=== PATIENT | male | born 1940 | race Caucasian/White ===

== ENCOUNTER 2018-03-29 08:50 | Day surgery (SDC) | payer OTHER, BC ==
[2018-03-29] MEDS ORDERED: Ringers Lactate 1,000 ML IV ONE (09:42)
[2018-03-29] MEDS ORDERED: LIDOCAINE 2% MPF 5 ML VIAL ONE (11:12)
[2018-03-29] MEDS ORDERED: PROPOFOL 200 MG/20 ML VIAL IV ONE (11:22)
--- NOTE | 2018-03-29 13:15 | ENDO RPT ---
[address], [address] COLONOSCOPY PROCEDURE REPORT EXAM DATE: 03/29/2018 PATIENT NAME: Yassine Puri MR #: [id number] BIRTHDATE: 1940 ATTENDING: Yassine Seo Dr STATUS: outpatient STRATEGY PLANNING CONSULTANT: Alondra Barajas RN and Jemma Taylor RN INDICATIONS: The patient is a 77 yr old Male here for a colonoscopy due to colon cancer screening PROCEDURE PERFORMED: Colonoscopy MEDICATIONS: Per Anesthesia. ESTIMATED BLOOD LOSS: None CONSENT: The patient understands the risks and benefits of the procedure and understands that these risks include, but are not limited to: sedation, allergic reaction, infection, perforation and/or bleeding. Alternative means of evaluation and treatment include, among others: physical exam, x-rays, and/or surgical intervention. The patient elects to proceed with this endoscopic procedure. DESCRIPTION OF PROCEDURE: During intra-op preparation period all mechanical medical equipment was checked for proper function. Hand hygiene and appropriate measures for infection prevention was taken. Procedure, possible complications, alternatives including, but not limited to possibility of bleeding, perforation, tear, infection, sepsis, need for surgery, need for blood transfusion, were explained to the patient. After the risks, benefits and alternatives of the procedure were thoroughly explained, Informed consent was verified, confirmed and timeout was successfully executed by the treatment team. The patient was placed in the left lateral position. A digital rectal exam was performed and revealed external hemorrhoids and A digital rectal exam was performed and revealed several skin tags. After appropriate level of anesthesia, the scope was passed. The [id number] ([id number]) endoscope was introduced through the anus and advanced to the cecum, which was identified by both the appendix and ileocecal valve. The quality of the prep was fair. The instrument was then slowly withdrawn as the colon was fully examined. Scope withdrawal time was 7 minutes. COLON FINDINGS: Mild diverticulosis was noted throughout the entire examined colon, predominantly in the sigmoid colon. No bleeding was noted from the diverticulosis. Moderate sized internal and external hemorrhoids were found. Retroflexed views revealed medium hemorrhoids. The scope was then completely withdrawn from the patient and the procedure terminated. ADVERSE EVENTS: There were no complications. IMPRESSIONS: 1. Mild diverticulosis throughout the entire examined colon, predominantly in the sigmoid colon 2. Moderate sized internal and external hemorrhoids 3. Intubation to cecum RECOMMENDATIONS: fiber rich diet RECALL: None scheduled due to age (77 y.o.) Yassine Seo Dr eSigned: Yassine Seo Dr 03/29/2018 11:45 AM cc: Braulio Paul CPT CODES: ICD9 CODES: PATIENT NAME: Yassine Puri MR#: [id number]
[2018-03-29 15:22] VITALS: BP 143/81; TEMP 97.6; O2SAT 100
== END 2018-03-29 12:06 | disposition home or self-care (01) ==
LOC: OR 08:50
PROVIDERS: ATTEND Internal Medicine Gastroenterology
PROC: 0DJD8ZZ Inspection of Lower Intestinal Tract, Via Natural or Artificial Opening Endoscopic (ICD-10-PCS; principal; 2018-03-29 12:15)
DX: Z12.11 Encounter for screening for malignant neoplasm of colon (principal); K57.90 Diverticulosis of intestine, part unspecified, without perforation or abscess without bleeding; K64.8 Other hemorrhoids; K64.4 Residual hemorrhoidal skin tags; E11.9 Type 2 diabetes mellitus without complications; I11.0 Hypertensive heart disease with heart failure; I50.9 Heart failure, unspecified; I25.2 Old myocardial infarction; Z95.0 Presence of cardiac pacemaker

== ENCOUNTER 2021-01-04 21:03 | Emergency (ER) | payer OTHER, BC ==
--- OUTSIDE RECORDS SUMMARY | 2021-01-04 21:05 | XMS REPORT | Continuity of Care Document ---
:1940 Author Organization [facility] t Address [address] [place] [address] Care Team Providers Name Role Phone Unavailable Unavailable Unavailable Payers Payer Name Policy Type Policy Number Effective Date Expiration Date S ource Problems This patient has no known problems. Allergies, Adverse Reactions, Alerts Allergy Allergy Status Severity Reaction(s) Onset Inactive Treating Comm ents Source Name Type Date Date Clinician No Known DA Active U [facility] All[facility]ie 12-[address] 00:00: [address] Medications This patient has no known medications. Procedures This patient has no known procedures. Results Test Description Test Time Test Comments Results Result Comments Source BASIC METABOLIC PANEL 2020-04-23 06:57:00 Test Item Value Reference Range Interpretation Comme nts SODIUM (test code = NA) 138 MMOL/L 137-145 N POTASSIUM (test code = K) 4.0 MMOL/L 3.5-5.1 N CHLORIDE (test code = CL) 102 MMOL/L 98-107 N CARBON DIOXIDE (test code = CO2) 26 MMOL/L 22-30 N GLUCOSE (test code = GLU) 118 MG/DL 74-106 H BLOOD UREA NITROGEN (test code = 13 MG/DL 9-20 N BUN) GLOMERULAR FILTRATION RATE (test > 60 Reporting units: ml/min/1.73 code = GFR) m2 (Modified M DRD Formula)Referen ce Range: > or = 60 ml/min/1.7 3 m2 CREATININE (test code = CREAT) 1.10 MG/DL 0.66-1.25 N CALCIUM (test code = CA) 9.5 MG/DL 8.4-10.2 N [id number] 06:57:00 Test Item Value Reference Range Interpretation Comments MAGNESIUM (test code = MAG) 2.1 MG/DL 1.6-2.3 N BASIC METABOLIC [id number] 06:56:00 Test Item Value Reference Range Interpretation Comments SODIUM (test code = 138 MMOL/L 137-145 N NA) POTASSIUM (test code = 4.0 MMOL/L 3.5-5.1 N K) CHLORIDE (test code = 102 MMOL/L 98-107 N CL) CARBON DIOXIDE (test 26 MMOL/L 22-30 N code = CO2) GLUCOSE (test code = MG/DL 74-106 GLU) BLOOD UREA NITROGEN MG/DL 9-20 (test code = BUN) GLOMERULAR FILTRATION > 60 Report ing units: RATE (test code = GFR) ml/mi n/1.73 m2 (Modified MDRD Formula)Referen ce Range: > or = 6 0 ml/min/1.73 m2 CREATININE (test code 1.10 MG/DL 0.66-1.25 N = CREAT) CALCIUM (test code = MG/DL 8.7-9.7 CA) [id number] 06:56:00 Test Item Value Reference Range Interpretation Comments MAGNESIUM (test code = MAG) MG/DL 1.6-2.3 BASIC METABOLIC [id number] 06:53:00 Test Item Value Reference Range Interpretation Comments SODIUM (test code = NA) 138 MMOL/L 137-145 N POTASSIUM (test code = K) MMOL/L 3.5-5.1 CHLORIDE (test code = CL) 102 MMOL/L 98-107 N CARBON DIOXIDE (test code = CO2) MMOL/L 22-30 GLUCOSE (test code = GLU) MG/DL 74-106 BLOOD UREA NITROGEN (test code = MG/DL 9-20 BUN) GLOMERULAR FILTRATION RATE (test code = GFR) CREATININE (test code = CREAT) MG/DL 0.66-1.25 CALCIUM (test code = CA) MG/DL 8.7-9.7 [id number] 06:53:00 Test Item Value Reference Range Interpretation Comments MAGNESIUM (test code = MAG) MG/DL 1.6-2.3 PROTHROMBIN [id number] 06:52:00 Test Item Value Reference Range Interpretation Comments PROTHROMBIN TIME 16.4 SECONDS 9.4-12.5 H PATIENT (test code = PTP) INTERNATIONAL NORMAL 1.5 The INR is to be RATIO (test code = used only for INR) monitoring oral anticoagulantth erap y. INDICATION I NR VALUE ---- ---- ---- -------1. Prophylaxis, de ep venous thrombos is, including hig h risk surgery. 2.0 - 3.0 2. Prophylaxis, de ep venous thrombos is, hip surgery, treatment for d eep venous thrombosis or pulmonary prevention of systemic emboli sm in patients wit h valvular heart disease, atrial fibrillation, tissue heart va lve, or acute myocar dial infarction. 2.0 - 3 .0 3. Mechanical prosthesis hear t valves, recurrent syste shane embolism. 3.0 - 4.5 Comments to Fastener Sewing Machine Operator: WILL BRING SPECIMAN TO THE LABPTT [id number] 06:52:00 Test Item Value Reference Range Interpretation Comments PTT ACTIVATED (test code = APTT) 35.3 SECONDS 25.1-36.5 N Comments to Fastener Sewing Machine Operator: WILL BRING SPECIMAN TO THE LABCBC W/AUTO DIFF 2020-04-23 06:42:00 Test Item Value Reference Range Interpretation Comments WHITE BLOOD CELL (test code = 6.7 K/MM3 3.8-9.8 N WBC) RED BLOOD CELL (test code = 4.79 M/MM3 3.95-5.67 N RBC) HEMOGLOBIN (test code = HGB) 14.1 G/DL 12.4-16.7 N HEMATOCRIT (test code = HCT) 44.0 % 35.9-49.5 N MEAN CELL VOLUME (test code = 92 fL 81.7-96.1 N MCV) MEAN CELL HGB (test code = MCH) 29.4 pg 27.6-33.2 N MEAN CELL HGB CONCETRATION 32.0 % 32.9-35.5 L (test code = MCHC) RED CELL DISTRIBUTION WIDTH 13.5 % 12.1-15.2 N (test code = RDW) PLATELET COUNT (test code = 165 K/MM3 129-368 N PLT) MEAN PLATELET VOLUME (test code 9.3 fl 7.4-10.4 N = MPV) NEUTROPHIL % (test code = NT%) 59.4 % 43-75 N IMMATURE GRANULOCYTE % (test 0.3 % 0.0-2.0 N code = IG%) LYMPHOCYTE % (test code = LY%) 25.5 % 14-44 N MONOCYTE % (test code = MO%) 10.4 % 4-13 N EOSINOPHIL % (test code = EO%) 3.2 % 0-6 N BASOPHIL % (test code = BA%) 1.2 % 0-2 N NUCLEATED RBC % (test code = 0.0 % 0-1.0 N NRBC%) NEUTROPHIL # (test code = NT#) 3.96 K/mm3 2.0-7.6 N IMMATURE GRANULOCYTE # (test 0.02 x10 3/uL 0-0.03 N code = IG#) LYMPHOCYTE # (test code = LY#) 1.70 K/mm3 1.0-3.8 N MONOCYTE # (test code = MO#) 0.69 K/mm3 0.1-0.8 N EOSINOPHIL # (test code = EO#) 0.21 K/mm3 0.0-0.2 H BASOPHIL # (test code = BA#) 0.08 K/mm3 0.0-0.2 N NUCLEATED RBC # (test code = 0.00 K/mm3 0.0-0.1 N NRBC#) Novel Coronavirus 2019 [id number] 18:25:00 Test Item Value Reference Range Interpretation Comments Novel Coronavirus Not Detected Not Detected Testing wa s performed 2019 Inhouse (test using the Aptima code = COVNONPUI) SARS-CoV-2 assay.This nucleic acid amplification t est was developed and itsperformance characteristics determined by [facility]. Nucleic acid amplification t ests include PCRand TMA. This test has not be en FDA cleared or appr brianna.This test has been a uthorized by FDA under an Emergency UseAuthorizatio n (EUA). This test is on ly authorized fort he duration of federico e the declaration marsha t circumstancesex ist justifying the authorization o f the emergency use o fin vitro diagnostic test s for detection of SA RS-CoV-2 virusand/or jennifer gnosis of COVID-19 infect ion under zisxaqc729(b)(1 ) of the Act, 21 U.S.C. 360bbb-3(b) (1) , unless theauthorizatio n is terminated or r evoked sooner.When jennifer gnostic testing is nega tive, the possibility of afalse negative result should be considered i n the contextof a pat ient's recent exposure s and the presence ofclin ical signs and sympt oms consistent with COVID-19. Anind ividual without symptom s of COVID-19 and wh o is notshedding NISH S-CoV-2 virus would exp ect to have a negative (not detected) resul t in this assay.Performed At: [facility] [address] [id number] baron Mixon MD Ph:[phone] Is this a LINE draw? N- XR CHEST 2 [id number] 10:49:00 Patient Name: RACHEAL HERRING Unit No: [id number] EXAMS: CPT CODE: [id number] XR CHEST 2 V [id number] EXAM: - XR CHEST 2 V LOCATION: C3 HISTORY: CHF COMPARISON: 01/13/2011 FINDINGS: 2 views of the chest. ICD noted. No pneumothorax. The lungs are clear. No pleural effusions are present. The mediastinal contours are unremarkable. No acute osseous findings are present. Unchanged compression deformity of T12. IMPRESSION: No acute cardiopulmonary abnormality. at 1049 Reported and signed by: Marshall Reynolds MD CC: Nehemias Phoenix Technologist: Viri Crooks, RT(NM) Transcrpt Date/Tm/Trnsp: 08/15/2018 (1040) [email or web address] Orig Print D/T: S: 08/15/2018 (1172) [facility] NAME: RACHEAL HERRING [address] [facility] [address] PHYS: Nehemias Domí[place] [address] : 1940 AGE: 78 SEX: M LOC: [facility] PHONE #: [phone] EXAM DATE: 08/15/2018 STATUS: REG CLI FAX #: [phone] RADIOLOGY NO: PAGE 1 Signed Report
[2021-01-04 22:00] LABS: Absolute Lymphocytes (CBC) 1.7 K/uL (0.7-4.9); Hematocrit 36.5 % (39.6-49.0); Lymphocytes % 23.6 % (15.3-44.8); MPV 7.6 fL (7.6-11.3); RBC Red Blood Cell Count 4.21 M/uL (4.33-5.43)
[2021-01-04 22:08] LABS: Protime INR 1.34
[2021-01-04 22:22] LABS: ALT/SGPT 24 U/L (12-78); AST/SGOT 16 U/L (15-37); Albumin 3.5 g/dL (3.4-5.0); Alkaline Phosphatase 57 U/L (45-117); BUN Blood Urea Nitrogen 14 mg/dL (7-18); Bicarbonate 28 mmol/L (21-32); Bilirubin Direct 0.2 mg/dL (0-0.2); Bilirubin Total 0.9 mg/dL (0.2-1.0); Glucose Level 119 mg/dL (74-106); Magnesium 2.3 mg/dL (1.8-2.4); NT PRO-BNP 985 pg/mL (<450); Potassium 4.3 mmol/L (3.5-5.1); Protein, Total 6.8 g/dL (6.4-8.2); Sodium Level 139 mmol/L (136-145); Troponin (Emerg Dept Use Only) < 0.02 ng/mL (0.0-0.045)
--- NOTE | 2021-01-04 22:23 | RAD REPORT ---
EXAM DESCRIPTION: Lise Single View01/04/2021 10:08 pm CLINICAL HISTORY: Chest pain COMPARISON: 2016 FINDINGS: The lungs appear clear of acute infiltrate. The heart is mildly to moderately enlarged. P acemaker leads are in place. Postsurgical changes involve chest IMPRESSION: No acute abnormalities displayed
--- NOTE | 2021-01-04 22:43 | ER ---
Nurse's Notes [facility] Name: Yassine Puri Age: 80 yrs Sex: Male : 1940 Arrival Date: 01/04/2021 Time: 21:03 Bed 5 Private MD: Braulio Paul Diagnosis: Palpitations;Presence of cardiac pacemaker;Presence of automatic (implantable) cardiac defibrillator Presentation: 01/04 21:12 Chief complaint: Patient states: Feeling fluttering, feels like his defibrillator is lp1 "going off" that began this evening; Denies chest pain, shortness of breath. Coronavirus screen: Client denies travel out of the [place] in the last 14 days. At this time, the client does not indicate any symptoms associated with coronavirus-19. Ebola Screen: No symptoms or risks identified at this time. Initial Sepsis Screen: Does the patient meet any 2 criteria? No. Patient's initial sepsis screen is negative. Does the patient have a suspected source of infection? No. Patient's initial sepsis screen is negative. Risk Assessment: Do you want to hurt yourself or someone else? Patient reports no desire to harm self or others. Onset of symptoms was January 04, 2021. 21:12 Method Of Arrival: Wheelchair lp1 21:12 Acuity: MESHA 3 lp1 Historical: - Allergies: 21:13 No Known Allergies; lp1 - PMHx: 21:13 defibrilator; Hypertension; lp1 - Immunization history:: Adult Immunizations up to date. - Social history:: Smoking status: Patient denies any tobacco usage or history of. Screenin:45 Abuse screen: Denies threats or abuse. Nutritional screening: No deficits noted. bb Tuberculosis screening: No symptoms or risk factors identified. Fall Risk None identified. Assessment: 21:45 General: Appears in no apparent distress. slender, Behavior is calm, cooperative. Pain: bb Denies pain. Neuro: Level of Consciousness is awake, alert, obeys commands, Oriented to person, place, time, situation. Cardiovascular: Capillary refill < 3 seconds Patient's skin is warm and dry. Rhythm is Respiratory: Respiratory effort is even, unlabored, Respiratory pattern is regular. GI: No signs and/or symptoms were reported involving the gastrointestinal system. Derm: Skin is dry, Skin is pale, Skin temperature is warm. Musculoskeletal: Circulation, motion, and sensation intact. 23:11 Reassessment: Patient appears in no apparent distress at this time. Patient and/or zb family updated on plan of care and expected duration. Pain level reassessed. Patient is alert, oriented x 3, equal unlabored respirations, skin warm/dry/pink. patient decided to AMA. notified of risk. paperwork signed. Vital Signs: 21:12 BP 125 / 62; Pulse 63; Resp 18; Pulse Ox 99% on R/A; Weight 68.04 kg (R); Height 5 ft. lp1 8 in. (172.72 cm); Pain 0/10; 21:45 BP 125 / 68; Pulse 61; Resp 16 S; Pulse Ox 95% on R/A; Pain 0/10; bb 23:13 BP 133 / 75; Pulse 62; Resp 16; Pulse Ox 97% on R/A; zb 21:12 Body Mass Index 22.81 (68.04 kg, 172.72 cm) lp1 ED Course: 21:03 Patient arrived in ED. do 21:03 Braulio Paul MD is Private Physician. do 21:13 Triage completed. lp1 21:13 Arm band placed on. lp1 21:30 Porter Hernandez MD is Attending Physician. 7 21:30 Initial lab(s) drawn, by me, sent to lab. Inserted saline lock: 20 gauge in right bb antecubital area, using aseptic technique. Blood collected. 21:44 Ciera Stewart, DOUG is Primary Nurse. bb 21:45 Patient has correct armband on for positive identification. Placed in gown. Bed in low bb position. Call light in reach. Side rails up X2. Adult w/ patient. electronic device monitor on. Pulse ox on. NIBP on. Warm blanket given. 22:08 XRAY Chest (1 view) In Process Unspecified. EDMS 22:42 Sumit Leggett MD is Referral Physician. 7 23:12 No provider procedures requiring assistance completed. IV discontinued, intact, zb bleeding controlled, No redness/swelling at site. Pressure dressing applied. Administered Medications: No medications were administered Outcome: 23:13 AMA AMA form signed zb 23:13 Condition: stable 23:13 Instructed on follow up and referral plans. 23:15 Patient left the ED. zb Signatures: Dispatcher [employer] Ciera Tiwari RN RN bb Erma Young RN RN 1 Swati Chua Maurice, MD MD 7 Dana Campos RN RN zb
--- NOTE | 2021-01-04 22:43 | EDPHYS ---
Physician Documentation [facility] Name: Yassine Puri Age: 80 yrs Sex: Male : 1940 Arrival Date: 01/04/2021 Time: 21:03 Bed 5 Private MD: Braulio Paul ED Physician Porter Hernandez HPI: 01/04 21:50 This 80 yrs old Male presents to ER via Wheelchair with complaints of Heart mh7 Problems. 21:50 The patient presents with a history of irregular heart beat, heart skipping beats. mh7 Context: The symptoms occur at rest. Onset: The symptoms/episode began/occurred yesterday. Duration: The patient or guardian reports multiple episodes, that are intermittent, that wax and wane. Modifying factors: The symptoms are aggravated by nothing. The symptoms are alleviated by nothing. Associated signs and symptoms: Pertinent negatives: anxiety, chest pain, cough, fever, lightheadedness, nausea, SOB, syncope, near-syncope, unusual stressors, vertigo, vomiting. Severity of symptoms: At their worst the symptoms were moderate today, in the emergency department the symptoms have resolved and did so just prior to arrival. Historical: - Allergies: 21:13 No Known Allergies; lp1 - PMHx: 21:13 defibrilator; Hypertension; lp1 - Immunization history:: Adult Immunizations up to date. - Social history:: Smoking status: Patient denies any tobacco usage or history of. ROS: 21:50 Constitutional: Negative for fever, chills, and weight loss, Eyes: Negative for injury, mh7 pain, redness, and discharge, ENT: Negative for injury, pain, and discharge, Neck: Negative for injury, pain, and swelling, Respiratory: Negative for shortness of breath, cough, wheezing, and pleuritic chest pain, Abdomen/GI: Negative for abdominal pain, nausea, vomiting, diarrhea, and constipation, Back: Negative for injury and pain, : Negative for injury, bleeding, discharge, and swelling, MS/Extremity: Negative for injury and deformity, Skin: Negative for injury, rash, and discoloration, Neuro: Negative for headache, weakness, numbness, tingling, and seizure, Psych: Negative for depression, anxiety, suicide ideation, homicidal ideation, and hallucinations, Allergy/Immunology: Negative for hives, rash, and allergies, Endocrine: Negative for neck swelling, polydipsia, polyuria, polyphagia, and marked weight changes, Hematologic/Lymphatic: Negative for swollen nodes, abnormal bleeding, and unusual bruising. Exam: 21:50 Constitutional: This is a well developed, well nourished patient who is awake, alert, mh7 and in no acute distress. Head/Face: Normocephalic, atraumatic. Eyes: Pupils equal round and reactive to light, extra-ocular motions intact. Lids and lashes normal. Conjunctiva and sclera are non-icteric and not injected. Cornea within normal limits. Periorbital areas with no swelling, redness, or edema. Neck: Trachea midline, no thyromegaly or masses palpated, and no cervical lymphadenopathy. Supple, full range of motion without nuchal rigidity, or vertebral point tenderness. No Meningismus. Chest/axilla: Normal chest wall appearance and motion. Nontender with no deformity. No lesions are appreciated. Cardiovascular: Regular rate and rhythm with a normal S1 and S2. No gallops, murmurs, or rubs. Normal PMI, no JVD. No pulse deficits. Respiratory: Lungs have equal breath sounds bilaterally, clear to auscultation and percussion. No rales, rhonchi or wheezes noted. No increased work of breathing, no retractions or nasal flaring. Abdomen/GI: Soft, non-tender, with normal bowel sounds. No distension or tympany. No guarding or rebound. No evidence of tenderness throughout. Back: No spinal tenderness. No costovertebral tenderness. Full range of motion. Skin: Warm, dry with normal turgor. Normal color with no rashes, no lesions, and no evidence of cellulitis. MS/ Extremity: Pulses equal, no cyanosis. Neurovascular intact. Full, normal range of motion. Neuro: Awake and alert, GCS 15, oriented to person, place, time, and situation. Cranial nerves II-XII grossly intact. Motor strength 5/5 in all extremities. Sensory grossly intact. Cerebellar exam normal. Normal gait. Psych: Awake, alert, with orientation to person, place and time. Behavior, mood, and affect are within normal limits. Vital Signs: 21:12 BP 125 / 62; Pulse 63; Resp 18; Pulse Ox 99% on R/A; Weight 68.04 kg (R); Height 5 ft. lp1 8 in. (172.72 cm); Pain 0/10; 21:45 BP 125 / 68; Pulse 61; Resp 16 S; Pulse Ox 95% on R/A; Pain 0/10; bb 23:13 BP 133 / 75; Pulse 62; Resp 16; Pulse Ox 97% on R/A; zb 21:12 Body Mass Index 22.81 (68.04 kg, 172.72 cm) lp1 MDM: 22:41 Differential diagnosis: arrythmia, dehydration, stress disorder, Palpitations, mh7 pacemaker/defibrillator malfunction. Data reviewed: vital signs, nurses notes. Data interpreted: Pulse oximetry: on room air is 95 %. Interpretation: normal. Response to treatment: the patient's symptoms have resolved after treatment, the patient's blood pressure is in an acceptable range, mental status has returned to baseline, the patient no longer shows bradycardia, the patient is not short of breath, the patient is not tachycardic, the patient's pain is gone, the patient's temperature has normalized. Refusal of service: The patient/guardian displays adequate decision making capability and despite a detailed discussion of alternatives, benefits, risks, and consequences refuses: all lab tests, Interrogation of pacemaker/defibrillator. 22:43 Patient medically screened. 7 01/04 21:44 Order name: Basic Metabolic Panel 01/04 21:44 Order name: CBC with Diff bb 01/04 21:44 Order name: LFT's; Complete Time: 22:36 01/04 21:44 Order name: Magnesium; Complete Time: 22:36 01/04 21:44 Order name: NT PRO-BNP; Complete Time: 22:36 01/04 21:44 Order name: PT-INR; Complete Time: 22:36 01/04 21:44 Order name: Troponin (emerg Dept Use Only); Complete Time: 22:36 bb 01/04 21:44 Order name: XRAY Chest (1 view); Complete Time: 22:36 bb 01/04 21:44 Order name: EKG; Complete Time: 21:45 bb 01/04 21:44 Order name: Cardiac monitoring; Complete Time: 21:44 bb 01/04 21:45 Order name: Basic Metabolic Panel; Complete Time: 22:36 EDMS 01/04 21:45 Order name: CBC with Automated Diff; Complete Time: 22:06 EDMS 01/04 22:41 Order name: TSH mh7 01/04 21:44 Order name: EKG - Nurse/Tech; Complete Time: :44 bb 01/04 21:44 Order name: IV Saline Lock; Complete Time: 21:44 bb 01/04 21:44 Order name: Labs collected and sent; Complete Time: :44 bb 01/04 21:44 Order name: O2 Per Protocol; Complete Time: :44 bb 01/04 21:44 Order name: O2 Sat Monitoring; Complete Time: 21:44 bb Administered Medications: No medications were administered Disposition Summary: 01/04/21 22:43 Left Against Medical Advice Location: [facility] Problem: new [facility] Symptoms: have improved [facility] Condition: Stable [facility] Diagnosis - Palpitations [facility] - Presence of cardiac pacemaker [facility] - Presence of automatic (implantable) cardiac defibrillator [facility] Followup: [facility] - With: Private Physician - When: 1 - 2 days - Reason: Worsening of condition, Recheck today's complaints, Continuance of care, Re-evaluation by your physician Followup: [facility] - With: Sumit Leggett MD - When: 1 - 2 days - Reason: Worsening of condition, Recheck today's complaints Discharge Instructions: - Discharge Summary Sheet [facility] - Palpitations [facility] Signatures: Dispatcher [employer] Ciera Tiwari RN RN bb Erma Young RN RN lp1 Porter Hernandez MD MD [facility]
[2021-01-04 23:25] VITALS: BP 133/75; O2SAT 97
== END 2021-01-04 23:15 | disposition left against medical advice (07) ==
LOC: ER 21:03
DX: R00.2 Palpitations (principal); I10 Essential (primary) hypertension; Z95.810 Presence of automatic (implantable) cardiac defibrillator
CPT/HCPCS: 36415; 71045; 80048; 80076; 83735; 83880; 84484; 85025; 85610; 93005; 99284

== ENCOUNTER → 2023-07-05 | Emergency (ER) | payer OTHER, BC ==
[~2023-07-05] MED LIST: MORPHINE 4 MG/ML SYR ONE
--- OUTSIDE RECORDS SUMMARY | 2023-07-05 13:26 | XMS REPORT | Continuity of Care Document ---
Author Name Unknown Address [address] [facility] [address]. [address] [place] [address] [facility] thconnect Address [address] [facility]. [address] [place] [address] Care Team Providers Care Lead Inspector Name Role Phone WILLIAM DAS Primary Care Physician LUIS Li Attending Clinician Nehemias Lora Attending Clinician ARABELLA Rodrigues Attending Clinician Nehemias Lora Admitting Clinician Carrillo dickson Payers Payer Name Policy Type Policy Number Effective Date Expirati on Date Source [facility] [id number] 2006 00:00:00 MEDICARE PART A \T\ B [id number] 2004 00:00:00 Allergies, Adverse Reactions, Alerts Allergy Name Allergy Type Status Severity Reaction(s) Onset Date Inactive Date Treating Clinician Comments Source No Known Allergie s DA Active U 12-26 00:00: 00 [facility] No Known Allergie s DA Active U 12-26 00:00: 00 [facility] NO KNOWN ALLERGIE S Drug Class Active [facility] Encounters Start Date/Time End Date/Time Encounter Type Admission Type Attending Clinicians Care Facility Care Department Encounter ID Source 2022-01-06 12:08:00 2022-01-06 12:08:00 Outpatient Nehemisa Juarez [facility] [id number] [facility] 2022-01-06 12:08:00 2022-01-06 12:08:00 Outpatient Nehemias Juarez [facility] [id number] [facility] 2020-08-13 10:20:00 2020-08-13 10:20:00 Outpatient [facility]ELLA [facility] [id number] [facility] 2020-08-13 10:20:00 2020-08-13 10:20:00 Outpatient ARABELLA [facility] [id number] [facility] 2020-07-16 10:20:00 2020-07-16 10:20:00 Outpatient ARABELLA [facility] [id number] [facility] 2020-04-23 07:30:00 2020-04-23 07:30:00 Outpatient Nehemias Phoenix [facility] [id number] [facility] Results Test Description Test Time Test Comments Results Result Co mments Source [id number] 13:52:00* Test Item Value Reference Range Interpretation Comme nts MAGNESIUM (test code = MAG) 1.9 MG/DL 1.6-2.3 N PROTHROMBIN [id number] 13:48:00* Test Item Value Reference Range Interpretation Comme nts PROTHROMBIN TIME PATIENT (test code = PTP) 15.4 SECONDS 9.4-12.7 H INTERNATIONAL NORMAL RATIO (test code = INR) 1.4 0.86-1.14 H The INR is to be used only for monitoring oral anticoagulanttherap y. INDICATION INR VALUE -------1. Prophylaxis, deep venous thrombosis, including high risk surgery. 2.0 - 3.0 2. Prophylaxis, deep venous thrombosis, hip surgery, treatment for deep venous thrombosis or pulmonary prevention of systemic embolism in patients with valvular heart disease, atrial fibrillation, tissue heart valve, or acute myocardial infarction. 2.0 - 3.0 3. Mechanical prosthesis heart valves, recurrent systemic embolism. 3.0 - 4.5 PTT [id number] 13:48:00* Test Item Value Reference Range Interpretation Comme nts PTT ACTIVATED (test code = APTT) 35.8 SECONDS 26.2-35.4 H CBC W/AUTO [id number] 13:21:00* Test Item Value Reference Range Interpretation Comme nts WHITE BLOOD CELL (test code = WBC) 6.0 K/MM3 3.8-9.8 N RED BLOOD CELL (test code = RBC) 4.63 M/MM3 3.95-5.67 N HEMOGLOBIN (test code = HGB) 13.9 G/DL 12.4-16.7 N HEMATOCRIT (test code = HCT) 42.3 % 35.9-49.5 N MEAN CELL VOLUME (test code = MCV) 91 fL 81.7-96.1 N MEAN CELL HGB (test code = MCH) 30.0 pg 27.6-33.2 N MEAN CELL HGB CONCETRATION (test code = MCHC) 32.9 % 32.9-35.5 N RED CELL DISTRIBUTION WIDTH (test code = RDW) 13.9 % 12.1-15.2 N PLATELET COUNT (test code = PLT) 178 K/MM3 129-368 N MEAN PLATELET VOLUME (test c ode = MPV) 9.6 fl 7.4-10.4 N NEUTROPHIL % (test code = NT%) 68.9 % 43-75 N IMMATURE GRANULOCYTE % (test code = IG%) 0.5 % 0.0-2.0 N LYMPHOCYTE % (test code = LY%) 18.9 % 14-44 N MONOCYTE % (test code = MO%) 10.5 % 4-13 N EOSINOPHIL % (test code = EO%) 0.7 % 0-6 N BASOPHIL % (test code = BA%) 0.5 % 0-2 N NUCLEATED RBC % (test code = NRBC%) 0.0 % 0-1.0 N NEUTROPHIL # (test code = NT#) 4.15 K/mm3 2.0-7.6 N IMMATURE GRANULOCYTE # (test code = IG#) 0.03 x10 3/uL 0-0.03 N LYMPHOCYTE # (test code = LY#) 1.14 K/mm3 1.0-3.8 N MONOCYTE # (test code = MO#) 0.63 K/mm3 0.1-0.8 N EOSINOPHIL # (test code = EO#) 0.04 K/mm3 0.0-0.2 N BASOPHIL # (test code = BA#) 0.03 K/mm3 0.0-0.2 N NUCLEATED RBC # (test code = NRBC#) 0.00 K/mm3 0.0-0.1 N BASIC METABOLIC [id number] 06:57:00* Test Item Value Reference Range Interpretation Comme nts SODIUM (test code = NA) 138 MMOL/L 137-145 N POTASSIUM (test code = K) 4.0 MMOL/L 3.5-5.1 N CHLORIDE (test code = CL) 102 MMOL/L 98-107 N CARBON DIOXIDE (test code = CO2) 26 MMOL/L 22-30 N GLUCOSE (test code = GLU) 118 MG/DL 74-106 H BLOOD UREA NITROGEN (test code = BUN) 13 MG/DL 9-20 N GLOMERULAR FILTRATION RATE (test code = GFR) > 60 Reporting units: ml/min/1.73 m2 (Modified MDRD Formula)Reference Range: > or = 60 ml/min/1.73 m2 CREATININE (test code = CREAT) 1.10 MG/DL 0.66-1.25 N CALCIUM (test code = CA) 9.5 MG/DL 8.4-10.2 N [id number] 06:57:00* Test Item Value Reference Range Interpretation Comme nts MAGNESIUM (test code = MAG) 2.1 MG/DL 1.6-2.3 N [id number] 06:56:00* Test Item Value Reference Range Interpretation Comme nts MAGNESIUM (test code = MAG) MG/DL 1.6-2.3 BASIC METABOLIC [id number] 06:56:00* Test Item Value Reference Range Interpretation Comme nts SODIUM (test code = NA) 138 MMOL/L 137-145 N POTASSIUM (test code = K) 4.0 MMOL/L 3.5-5.1 N CHLORIDE (test code = CL) 102 MMOL/L 98-107 N CARBON DIOXIDE (test code = CO2) 26 MMOL/L 22-30 N GLUCOSE (test code = GLU) MG/DL 74-106 BLOOD UREA NITROGEN (test code = BUN) MG/DL 9-20 GLOMERULAR FILTRATION RATE (test code = GFR) > 60 Reporting units: ml/min/1.73 m2 (Modified MDRD Formula)Reference Range: > or = 60 ml/min/1.73 m2 CREATININE (test code = CREAT) 1.10 MG/DL 0.66-1.25 N CALCIUM (test code = CA) MG/DL 8.7-9.7 BASIC METABOLIC [id number] 06:53:00* Test Item Value Reference Range Interpretation Comme nts SODIUM (test code = NA) 138 MMOL/L 137-145 N POTASSIUM (test code = K) MMOL/L 3.5-5.1 CHLORIDE (test code = CL) 102 MMOL/L 98-107 N CARBON DIOXIDE (test code = CO2) MMOL/L 22-30 GLUCOSE (test code = GLU) MG/DL 74-106 BLOOD UREA NITROGEN (test co de = BUN) MG/DL 9-20 GLOMERULAR FILTRATION RATE ( test code = GFR) CREATININE (test code = CREAT) MG/DL 0.66-1.25 CALCIUM (test code = CA) MG/DL 8.7-9.7 [id number] 06:53:00* Test Item Value Reference Range Interpretation Comme nts MAGNESIUM (test code = MAG) MG/DL 1.6-2.3 PROTHROMBIN [id number] 06:52:00* Test Item Value Reference Range Interpretation Comme nts PROTHROMBIN TIME PATIENT (test code = PTP) 16.4 SECONDS 9.4-12.5 H INTERNATIONAL NORMAL RATIO (test code = INR) 1.5 The INR is to be used only for monitoring oral anticoagulanttherap y. INDICATION INR VALUE -------1. Prophylaxis, deep venous thrombosis, including high risk surgery. 2.0 - 3.0 2. Prophylaxis, deep venous thrombosis, hip surgery, treatment for deep venous thrombosis or pulmonary prevention of systemic embolism in patients with valvular heart disease, atrial fibrillation, tissue heart valve, or acute myocardial infarction. 2.0 - 3.0 3. Mechanical prosthesis heart valves, recurrent systemic embolism. 3.0 - 4.5 Comments to Lead Shop Operator: WILL BRING SPECIMAN TO THE LABPTT [id number] 06:52:00* Test Item Value Reference Range Interpretation Comme nts PTT ACTIVATED (test code = APTT) 35.3 SECONDS 25.1-36.5 N Comments to Lead Shop Operator: WILL BRING SPECIMAN TO THE LABCB W/AUTO DIFF 2020-04-23 06:42:00* Test Item Value Reference Range Interpretation Comme nts WHITE BLOOD CELL (test code = WBC) 6.7 K/MM3 3.8-9.8 N RED BLOOD CELL (test code = RBC) 4.79 M/MM3 3.95-5.67 N HEMOGLOBIN (test code = HGB) 14.1 G/DL 12.4-16.7 N HEMATOCRIT (test code = HCT) 44.0 % 35.9-49.5 N MEAN CELL VOLUME (test code = MCV) 92 fL 81.7-96.1 N MEAN CELL HGB (test code = MCH) 29.4 pg 27.6-33.2 N MEAN CELL HGB CONCETRATION (test code = MCHC) 32.0 % 32.9-35.5 L RED CELL DISTRIBUTION WIDTH (test code = RDW) 13.5 % 12.1-15.2 N PLATELET COUNT (test code = PLT) 165 K/MM3 129-368 N MEAN PLATELET VOLUME (test c ode = MPV) 9.3 fl 7.4-10.4 N NEUTROPHIL % (test code = NT%) 59.4 % 43-75 N IMMATURE GRANULOCYTE % (test code = IG%) 0.3 % 0.0-2.0 N LYMPHOCYTE % (test code = LY%) 25.5 % 14-44 N MONOCYTE % (test code = MO%) 10.4 % 4-13 N EOSINOPHIL % (test code = EO%) 3.2 % 0-6 N BASOPHIL % (test code = BA%) 1.2 % 0-2 N NUCLEATED RBC % (test code = NRBC%) 0.0 % 0-1.0 N NEUTROPHIL # (test code = NT#) 3.96 K/mm3 2.0-7.6 N IMMATURE GRANULOCYTE # (test code = IG#) 0.02 x10 3/uL 0-0.03 N LYMPHOCYTE # (test code = LY#) 1.70 K/mm3 1.0-3.8 N MONOCYTE # (test code = MO#) 0.69 K/mm3 0.1-0.8 N EOSINOPHIL # (test code = EO#) 0.21 K/mm3 0.0-0.2 H BASOPHIL # (test code = BA#) 0.08 K/mm3 0.0-0.2 N NUCLEATED RBC # (test code = NRBC#) 0.00 K/mm3 0.0-0.1 N Novel Coronavirus 2019 [id number] 18:25:00* Test Item Value Reference Range Interpretation Comme nts Novel Coronavirus 2019 Inhouse (test code = COVNONPUI) Not Detected Not Detected Testing was pe rformed using the Aptima SARS-CoV-2 assay.This nucleic acid amplification test was developed and itsperformance characteristics determined by [facility]. Nucleic acid amplification tests include PCRand TMA. This test has not been FDA cleared or approved.This test has been authorized by FDA under an Emergency UseAuthorization (EUA). This test is only authorized forthe duration of time the declaration that circumstancesexist justifying the authorization of the emergency use ofin vitro diagnostic tests for detection of SARS-CoV-2 virusand/or diagnosis of COVID-19 infection under oebzwjc392(b)(1) of the Act, 21 U.S.C. 360bbb-3(b) (1), unless theauthorization is terminated or revoked sooner.When diagnostic testing is negative, the possibility of afalse negative result should be considered in the contextof a patient's recent exposures and the presence ofclinical signs and symptoms consistent with COVID-19. Anindividual without symptoms of COVID-19 and who is notshedding SARS-CoV-2 virus would expect to have a negative(not detected) result in this assay.Performed At: [facility] [address] [place], [place] [id number] Abdi Mixon MD Ph:[phone] Is this a LINE draw? N- XR CHEST 2 [id number] 10:49:00Patient Name: RACHEAL HERRING Unit No: [id number] EXAMS: CPT CODE: [id number] XR CHEST 2 V [id number] EXAM: - XR CHEST 2 V LOCATION: C3 HISTORY: CHF COMPARISON: 01/13/2011 FINDINGS: 2 views of the chest. ICD noted. No pneumothorax. The lungs are clear. No pleural effusions are present. The mediastinal contours are unremarkable. No acute osseous findings are present. Unchanged compression deformity ofT12. IMPRESSION: No acute cardiopulmonary abnormality. Electronically Signed by Marshall Silva 08/15/2018 at 1049 Reported and signed by: Marshall Reynolds MD CC: Nehemias Phoenix Technologist: Luis Crooks, RT(NM) Transcrpt Date/Tm/Trnsp: 08/15/2018 (1049) t.SDR.HV2 Orig Print D/T: S: 08/15/2018 (9026) [facility] NAME: RACHEAL HERRING [address] [facility] [address] PHYS: Nehemias Domí[place] [address] : 1940 AGE: 78 SEX: M LOC: ALBERTO PHONE #: [phone] EXAM DATE: 08/15/2018 STATUS: REG CLI FAX #: [phone] RADIOLOGY NO: PAGE 1 Signed Report Notes Date/Time Note Provider Source 2022-01-07 07:22:00 [id number] pN9J8BVJG+1LkZ68oy7gKfXGoLcwg EMCoxrHLootq05kX0vin2xPXx1+FjNY6318-54-09W21:22:0 [id number] [address] PATIENT NAME: RACHEAL HERRING ADMIT DATE: 01/06/22ACCOUNT NO: [id number] ROOM NO: AGE: 81 REPORT TYPE: CARDIAC CATHETERIZATION REPORT SEX: M ADMITTING PHYSICIAN: ATTENDING PHYSICIAN:Nehemias Phoenix MD PROCEDURE DATE: 01/06/2022 PROCEDURE: Cardioversion. PREPROCEDURE DIAGNOSES:1. Persistent atrial fibrillation.2. Chronic systolic heart failure.3. Dual-chamber [facility] AICD. POSTPROCEDURE DIAGNOSES:1. Persistent atrial fibrillation.2. Chronic systolic heart failure.3. Dual-chamber [facility] [place] AICD. COPS: Nehemias Phoenix MD DYNAMIC BALANCER SET UP WORKER: None. ANESTHESIA: Deep sedation with intravenous etomidate. PROCEDURE DETAILS: After informed consent was obtained explaining to thepatient the risks and benefits, and following adequate deep sedation, single 100joule biphasic shock was applied via anterior and apical defibrillation pads. This resulted in sinus rhythm. The patient tolerated the procedure well with nocomplications. CONCLUSIONS:1. Successful cardioversion.2. No complications. Dictated By: Nehemias Phoenix MD WT: CATH:Z.CPS/PEPGR/NTSDD: 01/07/2022 07:22:53DT: 01/07/2022 08:44:23Conf#: [id number]/DID#: [id number] Authenticated by Nehemias Phoenix MD On 01/07/2022 11:03:54 PM PATIENT NAME: RACHEAL HERRING at 1103 PATIENT NAME: RACHEAL HERRING ltiy0075-46-45E19:44:00Z.[id number] ble for patient nrneKGJWFXVTJHTKZF9104-41-04I33:04:26 [facility] 2022-01-06 14:31:00 [id number] 3BKZvBHpHHkgu0ZTCmgL/V6ZL7axZ CvYPje0FhlrPhLwgukaR7ahzBgGdSk12594-51-74M19:31:0 [address] [address] PATIENT NAME: RACHEAL HERRING ADMIT DATE: 01/06/22ACCOUNT NO: [id number] ROOM NO: AGE: 81 REPORT TYPE: ELECTROCARDIOGRAM SEX: M ADMITTING PHYSICIAN: ATTENDING PHYSICIAN:Nehemias Phoenix MD Order:[id number] Reason : POST CARDIOVERSION Test Date/Time Stamp:WedJan 06 2022 14:31:23Blood Pressure : / mmHGVent. Rate : 085 BPM Atrial Rate : 085 BPM P-R Int : 222 ms QRS Dur : 118 ms QT Int : 396 ms P-R-T Axes : 060 069 205 degrees QTc Int : 471 ms Electronic atrial pacemakerPossible Inferior infarct (cited on or before 06-JAN-2022)Anterolateral infarct (cited on or before 06-JAN-2022)Abnormal ECGWhen compared with ECG of 06-JAN-2022 12:34,Electronic atrial pacemaker has replaced Atrial fibrillationSerial changes of Anterior infarct presentConfirmed by MD TANISHA, BART MEJÍA ([id number]) on 01/08/2022 10:19:42 AM Referred By: Nehemias Phoenix Confirmed by:BART ESCOBAR MD at 1019 PATIENT NAME: RACHEAL HERRING .[id number] AVAvailable for patient ttyyZLAXPFAOTYXBJC5507-84-18W67:20:18 [facility] 2022-01-06 12:34:00 [id number] C+xQHalmrw4gVeDOsnvnEsjQJOm16 sqUhYdGubY+i1nlA/zglohMEIowK/Da1219-20-94O70:34:0 [id number] [place] [address] PATIENT NAME: RACHEAL HERRING ADMIT DATE: 01/06/22ACCOUNT NO: [id number] ROOM NO: AGE: 81 REPORT TYPE: ELECTROCARDIOGRAM SEX: M ADMITTING PHYSICIAN: ATTENDING PHYSICIAN:Nehemias Phoenix MD Order:[id number] Reason : PRE-PROCEDURE Test Date/Time Stamp:WedJan 06 2022 12:34:44Blood Pressure : / mmHGVent. Rate : 079 BPM Atrial Rate : 326 BPM P-R Int : 000 ms QRS Dur : 118 ms QT Int : 398 ms P-R-T Axes : 000 062 223 degrees QTc Int : 456 ms Atrial fibrillation with premature ventricular or aberrantly conducted complexesLow voltage QRSCannot rule out Inferior infarct , age undeterminedPossible Anterolateral infarct , age undeterminedAbnormal ECGWhen compared with ECG of 23-APR-2020 08:14,Atrial fibrillation has replaced Electronic ventricular pacemakerVent. rate has decreased BY 59 BPMConfirmed by FANTA HA, HECTOR ([id number]) on 01/07/2022 6:35:29 AM Referred By: Self Referred Confirmed by:HECTOR MARIN MD at 0635 PATIENT NAME: RACHEAL HERRING .[id number] AVAvailable for patient lyznQRMODKXVKTEUFH6687-10-86D98:36:05 [facility] 2020-04-23 08:14:00 [id number] I+jM3g0fd/jLuHyAU6tKgyV3D+7sG d/QEbc+xxmDLRb1gzkn76ZE0cI5w+DFw717370-14-44T06:1 4:853668-8749 [place] [id number] PATIENT NAME: RACHEAL HERRING ADMIT DATE: 04/23/20ACCOUNT NO: [id number] ROOM NO: AGE: 79 REPORT TYPE: ELECTROCARDIOGRAM SEX: M ADMITTING PHYSICIAN: ATTENDING PHYSICIAN:Nehemias Phoenix MD Order:[id number] Reason : POST CARDIOVERSION Test Date/Time Stamp:WedApr 23 2020 08:14:43Blood Pressure : / mmHGVent. Rate : 138 BPM Atrial Rate : 071 BPM P-R Int : 376 ms QRS Dur : 112 ms QT Int : 214 ms P-R-T Axes : 000 077 184 degrees QTc Int : 324 ms Demand pacemaker, interpretation is based on intrinsic rhythmAV dual-paced rhythmAbnormal ECGWhen compared with ECG of 23-APR-2020 06:57,Vent. rate has increased BY 73 BPMConfirmed by SANDIE KLEIN ([id number]) on 04/23/2020 5:01:00 PM Referred By: Nehemias Phoenix Confirmed by:SANDIE KLEIN at 1701 PATIENT NAME: RACHEAL HERRING .[id number] AVAvailable for patient uekrKCCNCRRNOLDTFL5559-49-49P07:01:32 [facility] 2020-04-23 08:14:00 MKgletydcdv75528342n m94UgLT9jBBjKSE8ds5ADZ8X15Ob+ v9MUqsjZlE2KrjDQMDUlrOq3l+3ET0NZVR2344-27-01W63:1 4:331274-5459 [place] [id number] PATIENT NAME: RACHEAL HERRING ADMIT DATE: 04/23/20ACCOUNT NO: [id number] ROOM NO: AGE: 79 REPORT TYPE: CARDIAC CATHETERIZATION REPORT SEX: M ADMITTING PHYSICIAN: ATTENDING PHYSICIAN:Nehemias Phoenix MD PROCEDURE DATE: 04/23/2020 PROCEDURE: Cardioversion. PREPROCEDURE DIAGNOSES:1. Persistent atrial fibrillation.2. Chronic systolic heart failure. POSTPROCEDURE DIAGNOSES:1. Persistent atrial fibrillation.2. Chronic systolic heart failure. COPS: eNhemias Phoenix MD ANESTHESIA: Deep sedation with intravenous etomidate. PROCEDURE DETAILS: After informed consent was obtained explaining to thepatient the risks, benefits, and alternatives, the patient was brought to thecardiac catheterization holding area in the fasting postabsorptive state. Following adequate sedation with intravenous etomidate, a single 200 joulebiphasic shock was applied via anterior and apical defibrillation pads. Thisresulted in sinus rhythm. The patient tolerated the procedure well with nocomplications. CONCLUSIONS:1. Successful cardioversion.2. No complications. Dictated By: Nehemias Phoenix MD WT: CATH:TEMO/JOHNNIE/NTSDD: 04/23/2020 08:14:31DT: 04/23/2020 09:12:43Conf#: [id number]/DID#: [id number] Authenticated by Nehemias Phoenix MD On 04/24/2020 11:29:52 AM at 1130 PATIENT NAME: RACHEAL HERRING Dyzf2848-51-95O46:12:00Z.[id number] ble for patient vptzDXOFCQOVAHMYOP2726-27-12Z57:30:25 [facility] 2020-04-23 06:57:00 [id number] k+eRIwRJtDuc+EKL2kBAxghlqPXYu 43vWhhVOWFXaKYdDRwhi/fH6nLJnDCoOdO4566-82-24H74:5 7:[id number] [place] [address] PATIENT NAME: RACHEAL HERRING ADMIT DATE: 04/23/20ACCOUNT NO: [id number] ROOM NO: AGE: 79 REPORT TYPE: ELECTROCARDIOGRAM SEX: M ADMITTING PHYSICIAN: ATTENDING PHYSICIAN:Nehemias Phoenix MD Order:[id number] Reason : PRE CARDIOVERSION Test Date/Time Stamp:WedApr 23 2020 06:57:34Blood Pressure : / mmHGVent. Rate : 065 BPM Atrial Rate : 093 BPM P-R Int : 000 ms QRS Dur : 174 ms QT Int : 492 ms P-R-T Axes : 000 157 269 degrees QTc Int : 511 ms Electronic ventricular pacemakerWhen compared with ECG of 01-JAN-2016 13:42,Electronic ventricular pacemaker has replaced Electronic atrial pacemakerConfirmed by SANDIE KLEIN ([id number]) on 04/23/2020 4:59:54 PM Referred By: Nehemias Phoenix Confirmed by:SANDIE KLEIN at 1700 PATIENT NAME: RACHEAL HERRING .[id number] AVAvailable for patient qocvLETBIJJUJRICKJ6470-84-85Y05:00:11 [facility]
[2023-07-05 14:50] LABS: Absolute Lymphocytes (CBC) 1.8 K/uL (0.7-4.9); Hematocrit 43.4 % (39.6-49.0); Lymphocytes % 28.1 % (15.3-44.8); MCV 88.5 fL (80-100); MPV 6.7 fL (7.6-11.3); Platelets 270 thou/uL (152-406)
[2023-07-05 15:15] LABS: Albumin 3.3 g/dL (3.4-5.0); Bilirubin Total 1.1 mg/dL (0.2-1.0); Potassium 4.5 mEq/L (3.5-5.1); Protein, Total 7.1 g/dL (6.4-8.2)
--- NOTE | 2023-07-05 17:03 | RAD REPORT ---
EXAM DESCRIPTION: CT - Abdomen Pelvis W Contrast - 07/05/2023 3:36 pm CLINICAL HISTORY: ABD PAIN COMPARISON: Abdomen Pelvis W Contrast dated 03/15/2023; Abdomen Pelvis W Contrast dated 05/21/2020 TECHNIQUE: Thin cut axial CT imaging of the abdomen and pelvis was performed following intravenous a dministration of 100 mL Isovue 300. Multiplanar reformats were generated and reviewed. All CT scans are performed using dose optimization technique as appropriate and may include automated exposure control or mA/KV adjustment according to patient size. FINDINGS: No suspicious findings in the lung bases. The liver shows stable small subcapsular regions of hypoattenuation along the inferior margin of the right liver lobe, may represent small cysts or postoperative sequelae. Spleen, adrenal glands, and pa ncreas show no suspicious findings. Gallbladder was surgically removed. Symmetric renal function is seen with no hydronephrosis or suspicious renal mass. Mildly dilated proximal small bowel loops with air-fluid levels. Transition point appears to be at th e level of a subxiphoid midline ventral hernia containing a short segment of distended small bowel. S mall bowel distal to the hernia orifice appears decompressed. Colonic diverticulosis. No free air, fr ee fluid or inflammatory stranding. Bilateral inguinal hernias, with the right-sided hernia containin g nondistended loops of small bowel. No suspicious mass or bulky lymphadenopathy. Marked to moderate prostatomegaly. The urinary bladder is without significant finding. No suspicious bony findings. Anterior wedge compression deformity at L1, stable. IMPRESSION: Dilated proximal small bowel loops with transition point at the orifice of a subxiphoid ventral midline hernia, concerning for at least low-grade bowel obstruction. Other incidental findings as above. The findings were communicated to Toby Da Silva on 07/05/2023 at 16:57 hours.
--- NOTE | 2023-07-05 17:40 | EDPHYS ---
Physician Documentation [facility] Name: Yassine Puri Age: 82 yrs Sex: Male : 1940 Arrival Date: 07/05/2023 Time: 13:23 Bed 6 Private MD: Braulio Paul ED Physician Toby Da Silva HPI: 07/05 13:52 This 82 yrs old Male presents to ER via Wheelchair with complaints of ec2 Abdominal Pain. 13:52 Patient arrives today for abdominal pain. States that he noticed swelling in the right ec2 abdomen. Patient states that he has a history of this, states that he had a hernia, is having worsening pain, states that the size of the hernia has not changed. Reports no vomiting, denies diarrhea, denies issues with bowel movements. No urinary complaint. No cough or cold symptoms.. Historical: - Allergies: 13:35 No Known Allergies; ld1 - PMHx: 13:35 defibrilator; Hypertension; ld1 - PSHx: 13:35 Cholecystectomy; Heart bypass; ld1 - Immunization history:: Adult Immunizations up to date. - Social history:: Smoking status: Patient denies any tobacco usage or history of. Patient/guardian denies using alcohol. ROS: 13:52 Constitutional: as per hpi ec2 Exam: 13:52 Constitutional: GEN: NAD Head: atraumatic Eyes: EOMI Ears: External ears are ec2 normal. CV: regular rate LUNGS: no respiratory distress ABD: non-distended, soft, right-sided hernia appreciated, TTP, no overlying skin changes. SKIN: no evidence of rashes MSK: no evidence of trauma NEURO: moves all extremities equally Vital Signs: 13:33 BP 144 / 90; Pulse 62; Resp 18; Temp 97.6(TE); Pulse Ox 100% on R/A; Weight 61.23 kg; ld1 Height 5 ft. 7 in. ; Pain 8/10; 17:20 BP 150 / 88; Pulse 61; Resp 18; Pulse Ox 100% ; Pain 4/10; nj1 13:33 Body Mass Index 21.14 (61.23 kg, 170.18 cm) ld1 13:33 Pain Scale: Adult ld1 17:20 Pain Scale: Adult nj1 MDM: 13:52 Patient medically screened. ec2 13:52 Data reviewed: vital signs. ED course: Patient arrives today for abdominal pain. ec2 Examination remarkable for abdominal findings as noted above. Will perform CT scan, lab work and attempt manual reduction.. 15:31 ED course: Metabolic profile reassuring, CBC and lipase nonactionable. Pending CT ec2 imaging. . 17:13 ED course: CT abdomen pelvis shows hernia with transition point for low-grade small ec2 bowel obstruction. Patient initially resistant to allow me to manipulate the hernia however now agreeable given the CT findings. . 17:26 ED course: I was able to manually reduce the hernia after morphine and ice application. ec2 Patient's abdomen is soft and nontender not guarding without rigidity. I will discharge patient to home given that we have now resolved his incarcerated hernia.. 07/05 13:54 Order name: CBC with Diff ec2 07/05 13:54 Order name: CMP; Complete Time: 15:31 ec2 07/05 13:54 Order name: Lipase; Complete Time: 15:31 ec2 07/05 13:54 Order name: CT Abd/Pelvis - IV Contrast Only; Complete Time: 17:12 ec2 07/05 13:54 Order name: IV Saline Lock; Complete Time: 14:49 ec2 07/05 13:54 Order name: Labs collected and sent; Complete Time: 14:49 ec2 Administered Medications: 17:20 Drug: morphine IVP or IV 4 mg IVP once over 4 mins Route: IVP; Infused Over: 4 mins; nj1 Site: right forearm; Disposition Summary: 07/05/23 17:39 Discharge Ordered Notes: Location: Home ec2 Problem: new ec2 Symptoms: are resolved ec2 Condition: Stable ec2 Diagnosis - Reduced Ventral Hernia ec2 Followup: ec2 - With: Kunal Matos MD - When: - Reason: Recheck today's complaints Discharge Instructions: - Discharge Summary Sheet ec2 - Ventral Hernia ec2 Forms: - Medication Reconciliation Form ec2 - Thank You Letter ec2 - Antibiotic Education ec2 - Prescription Opioid Use ec2 - Patient Portal Instructions ec2 - Leadership Thank You Letter ec2 Signatures: Dispatcher [employer] Le Santillan RN RN ld1 Elsie Lancaster RN RN nj1 Toby Da Silva MD MD ec2
--- NOTE | 2023-07-05 17:40 | ER ---
Nurse's Notes [facility] Name: Yassine Puri Age: 82 yrs Sex: Male : 1940 Arrival Date: 07/05/2023 Time: 13:23 Bed 6 Private MD: Braulio Paul Diagnosis: Reduced Ventral Hernia Presentation: 07/05 13:33 Chief complaint: Patient states: upper abdominal pain X 1 hour. Coronavirus screen: At ld1 this time, the client does not indicate any symptoms associated with coronavirus-19. Ebola Screen: No symptoms or risks identified at this time. Initial Sepsis Screen: Does the patient meet any 2 criteria? No. Patient's initial sepsis screen is negative. Does the patient have a suspected source of infection? No. Patient's initial sepsis screen is negative. Risk Assessment: Do you want to hurt yourself or someone else? Patient reports no desire to harm self or others. Onset of symptoms was July 05, 2023. 13:33 Method Of Arrival: Wheelchair ld1 13:33 Acuity: MESHA 3 ld1 Triage Assessment: 13:35 General: Appears in no apparent distress. uncomfortable, Behavior is calm, cooperative, ld1 appropriate for age. Pain: Complains of pain in right upper quadrant and left upper quadrant Pain does not radiate. Pain at worst was 8 out of 10 on a pain scale. Quality of pain is described as sharp, Pain began 1 hour ago. Is continuous. EENT: No signs and/or symptoms were reported regarding the EENT system. Neuro: Level of Consciousness is awake, alert, obeys commands, Oriented to person, place, time, situation. Cardiovascular: Capillary refill < 3 seconds Patient's skin is warm and dry. Respiratory: Airway is patent Respiratory effort is even, unlabored. GI: Abdomen is flat, non-distended, Reports upper abdominal pain. : No signs and/or symptoms were reported regarding the genitourinary system. Derm: No signs and/or symptoms reported regarding the dermatologic system. Musculoskeletal: No signs and/or symptoms reported regarding the musculoskeletal system. Historical: - Allergies: 13:35 No Known Allergies; ld1 - PMHx: 13:35 defibrilator; Hypertension; ld1 - PSHx: 13:35 Cholecystectomy; Heart bypass; ld1 - Immunization history:: Adult Immunizations up to date. - Social history:: Smoking status: Patient denies any tobacco usage or history of. Patient/guardian denies using alcohol. Screenin:25 [facility] ED Fall Risk Assessment (Adult) Score/Fall Risk Level 0 - 2 = Low Risk nj1 Oriented to surroundings, Maintained a safe environment, Hourly rounding (assess needs \T\ fall precautionary measures) done. Abuse screen: Denies threats or abuse. Denies injuries from another. Nutritional screening: No deficits noted. Tuberculosis screening: No symptoms or risk factors identified. Assessment: 16:07 Reassessment: pt does not want to be brought back to a room, does not want to be put in iw a bed, requests to remain in wheelchair in lobby until results are back. 17:20 Reassessment: Patient appears in no apparent distress at this time. No changes from [facility] previously documented assessment. Patient and/or family updated on plan of care and expected duration. Pain level reassessed. Patient is alert, oriented x 3, equal unlabored respirations, skin warm/dry/pink. Vital Signs: 13:33 BP 144 / 90; Pulse 62; Resp 18; Temp 97.6(TE); Pulse Ox 100% on R/A; Weight 61.23 kg; ld1 Height 5 ft. 7 in. ; Pain 8/10; 17:20 BP 150 / 88; Pulse 61; Resp 18; Pulse Ox 100% ; Pain 4/10; nj1 13:33 Body Mass Index 21.14 (61.23 kg, 170.18 cm) ld1 13:33 Pain Scale: Adult ld1 17:20 Pain Scale: Adult oh1 ED Course: 13:24 Patient arrived in ED. rg4 13:25 Braulio Paul MD is Private Physician. rg4 13:30 Toby Da Silva MD is Attending Physician. ec2 13:33 Triage completed. ld1 13:35 Arm band placed on right wrist. ld1 14:49 Inserted saline lock: 22 gauge in right forearm, using aseptic technique. Blood ds4 collected. 15:38 CT Abd/Pelvis - IV Contrast Only In Process Unspecified. EDMS 17:07 Elsie Lancaster, DOUG is Primary Nurse. nj1 17:26 Patient has correct armband on for positive identification. Bed in low position. Call nj1 light in reach. Adult w/ patient. Provided Education on: call light, fall precautions. 17:39 Kunal Matos MD is Referral Physician. ec2 17:58 No provider procedures requiring assistance completed. IV discontinued, intact, iw bleeding controlled, No redness/swelling at site. Pressure dressing applied. Administered Medications: 17:20 Drug: morphine IVP or IV 4 mg IVP once over 4 mins Route: IVP; Infused Over: 4 mins; nj1 Site: right forearm; Medication: 17:58 VIS not applicable for this client. iw Outcome: 17:39 Discharge ordered by . ec2 17:58 Discharged to home via wheelchair, with family, iw 17:58 Condition: good 17:58 Discharge instructions given to patient, family, Instructed on discharge instructions, follow up and referral plans. Demonstrated understanding of instructions, follow-up care, 17:58 Patient left the ED. iw Signatures: Dispatcher [employer] Myra Oneill RN RN iw Josh Spangler ds4 Bee Escobar rg4 Le Rivera RN RN ld1 Elsie Lancaster RN RN nj1 Toby Da Silva MD MD ec2
[2023-07-05 20:10] VITALS: BP 150/88; TEMP 97.6; O2SAT 100
== END ==
LOC: ER 13:23
DX: K43.9 Ventral hernia without obstruction or gangrene (principal); Z95.810 Presence of automatic (implantable) cardiac defibrillator
CPT/HCPCS: 85025; 36415; 83690; 80053; 74177; 96374; 99284; Q9967

== ENCOUNTER 2023-07-22 10:18 | Day surgery (SDC) | payer OTHER, BC ==
[2023-07-21 12:02] LABS: Protime INR 1.27
[2023-07-22] MEDS: Ringers Lactate 1,000 ML IV ONE (10:45)
[2023-07-22] MEDS ORDERED: ONDANSETRON 4 MG/2 ML VIAL ONE ×2 (12:06→12:52)
[2023-07-22] MEDS ORDERED: ROCURONIUM 50 MG/5 ML VIAL IV ONE (12:06)
[2023-07-22] MEDS ORDERED: FENTANYL CITR 100 MCG/2 ML ONE (12:06)
[2023-07-22] MEDS ORDERED: propofoL 200 MG/20 ML VIAL IV ONE (12:06)
[2023-07-22] MEDS ORDERED: LIDOCAINE 1% MPF 5 ML VIAL ONE (12:06)
[2023-07-22] MEDS: CEFAZOLIN SODIUM 1 GM/VIAL ONE (12:22)
[2023-07-22] MEDS ORDERED: dexAMETHasone 4 MG/ML VIAL ONE (12:52)
[2023-07-22] MEDS: BUPIVACAINE 0.25% PF 30 ML VIAL ONE (13:16)
--- NOTE | 2023-07-22 13:26 | EKG ---
Test Date: 2023-07-21 Test Time: 12:30:11 Computer Technical Specialist: YOHAN MEASUREMENT RESULTS: Intervals: Rate: 63 ID: [id number] QT: 444 QTc: 454 [place]: P: ID: [id number] T: 112 INTERPRETIVE STATEMENTS: Electronic ventricular pacemaker Compared to ECG 01/04/2021 21:06:26 Atrial-paced complex(es) or rhythm no longer present Left posterior fascicular block no longer present Myocardial infarct finding no longer present T-wave abnormality no longer present Possible ischemia no longer present Electronically Signed On 07-22-23 13:22:25 LEGAL SUMMER INTERN by Gurpreet Mason
[2023-07-22] MEDS ORDERED: EPHEDRINE SULF 50 MG/ML VIAL ONE (13:37)
[2023-07-22] MEDS ORDERED: SUGAMMADEX SODIUM 200 MG/2 ML VIAL IV ONE (13:54)
--- NOTE | 2023-07-22 13:57 | P.OP ---
Preoperative diagnosis: Ventral Incisional Hernia Postoperative diagnosis: Ventral Incisional Hernia Primary procedure: Laparoscopic Ventral Incisional Hernia Repair with mesh Anesthesia: GETA + Local Estimated blood loss: <2cc Specimen: Hernia Contents- Adipose Findings: ~ 1.5cm epigastric hernia Left off midline Complications: None Implants: Bard Ventralite 11.4cm Round mesh, sorbafix x 45 Transferred to: Recovery Room Condition: Good
[2023-07-22] MEDS: HYDROMORPHONE HCL 1 MG/ML INJ ONE (14:06)
[2023-07-22 15:03] VITALS: O2SAT 96
[2023-07-22 16:39] VITALS: BP 128/72; TEMP 97.3
--- NOTE | 2023-07-22 22:09 | OP ---
Date of Procedure: 07/22/2023 Surgeon: Kunal Matos MD, Preoperative Diagnosis: Ventral incisional hernia. Postoperative Diagnosis: Ventral incisional hernia. Procedure Performed: Laparoscopic ventral incisional hernia repair with mesh. Anesthesia: General endotracheal plus local with 0.25% Marcaine without epinephrine. Estimated Fluid Loss: 2 cc. Specimen: Hernia contents, which was adipose tissue. Findings: Approximately 1.5 cm epigastric ventral hernia off midline. Complications: None. Implants: Bard Ventralight ST mesh with Echo Positioning System, 11.4 cm utilized, round mesh, and S orbaFix absorbable fixation tacks x45 tacks utilized. Disposition: The patient was transferred to recovery room in good condition. Procedure In Detail: After informed consent was obtained, patient was brought to the operating room, prepped and draped in the usual sterile fashion. After adequate anesthesia was achieved and anesthe tized the area of the left upper quadrant, sharply incised the area and a 5 mm surgical optical troca r was introduced in the abdomen without complication. Insufflation obtained to 15 mmHg at this time. There was no injury to vital structures upon entering the abdomen. Additional trocar was placed in the left mid abdomen. This was similarly anesthetized, sharply incised, and a 12 mm trocar was plac ed under direct visualization without incident or complication. I then used a LigaSure device to red uce the hernia adipose tissue from the left of midline epigastric ventral incisional hernia, removing the adipose tissue and sweep back preperitoneal fat to allow for appropriate landing zone of the her noel mesh. At this point, the adipose tissue was placed in EndoCatch bag, removed the left lower quad rant trocar and sent off for pathologic examination as hernia contents. At this point, I brought the Endo Stitch with 0 V-Loc suture and suture closed the hernia defect imbricating the hernia sac at th is point in a running fashion with good approximation of tissues. I then deployed an 11.4 cm Bard Ve n[address]ight ST mesh with Echo Positioning System in the central portion of the defect just to the left of midline in the epigastric region after making a stab incision appropriately and anesthetizing the skin. At this point, the balloon deployment system was deployed. The SorbaFix absorbable fixation t micheal was used to secure a single crown to the anterior abdominal wall. The balloon deployment syste m was then removed, found to be intact on back table and a second crown of SorbaFix absorbable fixati on tacks were placed to the anterior abdominal wall with a total of 45 tacks being utilized to secure the mesh to the anterior abdominal wall. Good apposition of mesh to the abdominal wall. No hemosta tic measures required at this point. I then removed the 12 mm trocar site, closed the 12 mm trocar s ite using a Kevin suture passer with 0 Vicryl in interrupted fashion with good approximatio n of tissues. I then desufflated the abdomen under direct visualization without incident or complica tion. All remaining trocars were removed. All skin incisions were copiously irrigated and closed wi th a 4-0 Monocryl in a running fashion. Dermabond was placed over top. Patient tolerated the proced ure well without complication and transferred to PACU in good condition. All counts were correct at the end of the case. ROSALEE/KIMBERLEE Voice ID: [id number] Report ID: [id number]
== END 2023-07-22 16:27 | disposition home or self-care (01) ==
LOC: OR 10:18
PROVIDERS: ATTEND Surgery
PROC: 0WUF4JZ Supplement Abdominal Wall with Synthetic Substitute, Percutaneous Endoscopic Approach (ICD-10-PCS; principal; 2023-07-22 12:00)
DX: K43.2 Incisional hernia without obstruction or gangrene (principal)
CPT/HCPCS: 93005; 36415; 85610; 85730; 49591; J2704; J1100; J2001; J3010; J1170; J2405 ×2; J7120; J0690; C1781